=== PATIENT | female | born 1955 | race Caucasian/White ===

== ENCOUNTER 2019-01-26 13:28 | Day surgery (SDC) | payer OTHER ==
[2019-01-25 10:53] VITALS: BMI 34.2
[2019-01-26] MEDS ORDERED: MIDAZOLAM HCL 2 MG/2 ML SINGLE DOSE VIAL ONE (14:06)
[2019-01-26] MEDS ORDERED: DEXAMETHASONE SOD PHOSPHATE/PF 10 MG/ML SDV ONE (14:06)
[2019-01-26] MEDS ORDERED: ROPIVACAINE HCL 0.5% 30ML VIAL ONE (14:07)
[2019-01-26] MEDS ORDERED: PROPOFOL 20 ML ONE ×2 (14:11)
[2019-01-26] MEDS ORDERED: LIDOCAINE HCL/PF 2% SDV 5ML VIAL ONE (14:11)
[2019-01-26] MEDS ORDERED: SUCCINYLCHOLINE CHLORIDE 200 MG/10 ML SYRINGE ONE (14:11)
[2019-01-26] MEDS ORDERED: oxyCODONE HCL 5 MG TABLET PO PRN (14:20)
[2019-01-26] MEDS ORDERED: ONDANSETRON 4 MG/2 ML VIAL IVPUSH PRN (14:20)
[2019-01-26] MEDS ORDERED: LACTATED RINGERS SOLUTION 1,000 ML IV SCH (14:30)
[2019-01-26] MEDS ORDERED: DEXAMETHASONE SOD PHOSPHATE 4 MG/1 ML VIAL ONE (15:19)
[2019-01-26] MEDS ORDERED: ONDANSETRON 4 MG/2 ML VIAL ONE (15:19)
[2019-01-26] MEDS ORDERED: GUM MASTIC/STORAX/MSAL/ALCOHOL 1 DRP DROPSBTL MC ONE (16:01)
[2019-01-26 17:21] VITALS: TEMP 98
[2019-01-26 18:25] VITALS: BP 150/72; PULSE 76
--- NOTE | 2019-01-31 14:51 | OP ---
DATE OF OPERATION: 01/26/2019 PREOPERATIVE DIAGNOSIS: Right comminuted, intraarticular, displaced distal radius fracture. POSTOPERATIVE DIAGNOSIS: Right comminuted, intraarticular, displaced distal radius fracture. OPERATIVE PROCEDURE: 1. Open reduction and internal fixation of right comminuted, intraarticular, displaced distal radius fracture. 2. Right brachioradialis tenotomy. SURGEON: Lima Taylor MD COMBINING MACHINE OPERATOR: MOISÉS Jj ANESTHESIA: Regional. COMPLICATIONS: None. ESTIMATED BLOOD LOSS: Minimal. INDICATION FOR PROCEDURE: The patient is a 63-year-old female with the above finding, indicated for operative treatment. Risks, benefits, and alternatives were discussed with the patient at length. Proper informed consent was obtained. PROCEDURE: After proper identification of patient and correct operative site, patient was brought to the operating room and placed supine on the table. All prominences were well padded. Sedation and regional anesthesia were given. Right upper extremity was prepped and draped in usual sterile fashion. Intravenous antibiotics were given. Timeout procedure was performed. Esmarch bandage used to exsanguinate the right upper extremity. Tourniquet was inflated to 250 mmHg. Longitudinal incision made over the flexor carpi radialis tendon. Incision was taken sharply through the skin, with blunt and sharp dissection through the subcutaneous tissues. Flexor carpi radialis tendon along with the contents of the carpal canal was bluntly and gently retracted in an ulnarward direction for the remainder of the procedure. The pronator quadratus was divided longitudinally and elevated off the distal radius. High-comminuted fracture including radial styloid fragment was noted. Brachioradialis tenotomy was necessary in a subperiosteal fashion in order to mobilize these fragments. The fracture was then able to be reduced and held with a plain Acumed AccuLock distal radius plate with distal locking screws and proximal non-locking screws. This provided secure, stable fixation of the fracture. Scapholunate interval and distal radioulnar joints were also stressed and found to be stable. Wound was irrigated and repaired in layers using 4-0 Vicryl and 4-0 Monocryl sutures. Steri-Strips, sterile dressings, and a splint were placed. Patient was reversed from anesthesia and brought to recovery in stable condition. Sushil Pantoja, the bilingual administrative assistant, was integral throughout this procedure. Procedure could not have been performed without a skilled operative bilingual administrative assistant. LIMA TAYLOR M.D. [id number]
== END 2019-01-26 18:15 | disposition home or self-care (01) ==
LOC: FASU 13:28
PROVIDERS: ATTEND Orthopaedic Surgery Hand Surgery
PROC: 0LN50ZZ Release Right Lower Arm and Wrist Tendon, Open Approach (ICD-10-PCS; 2019-01-26)
PROC: 0PSH04Z Reposition Right Radius with Internal Fixation Device, Open Approach (ICD-10-PCS; principal; 2019-01-26 15:27)
DX: S52.501A Unspecified fracture of the lower end of right radius, initial encounter for closed fracture (principal); X58.XXXA Exposure to other specified factors, initial encounter; Y93.9 Activity, unspecified; Y92.9 Unspecified place or not applicable
CPT/HCPCS: 25290; 25608; C1713; 73110-TC-RT-FY; 94760